=== PATIENT | female | born 1960 | race Hispanic/Latino ===

== ENCOUNTER 2024-10-29 19:28 | Emergency (ER) | payer MEDICARE, OTHER ==
[~2024-10-29] VITALS: Ht 152.4 cm; Wt 76.7 kg
[~2024-10-29 19:28] MED LIST: CLON2TAB11 PO; CYAN-52 PO; CYCL-309 PO; ESOM40CA66 PO; FOLI1TAB15 PO; LEVO50 PO
[2024-10-29 20:12] LABS: BASOPHILS # (AUTO) 0.03 K/uL (0.00-0.20); BASOPHILS % (AUTO) 0.6 % (0.0-5.0); EOSINOPHILS # (AUTO) 0.02 K/uL (0.00-0.70); EOSINOPHILS % (AUTO) 0.4 % (0.0-8.0); HEMATOCRIT 35.3 % (36-48); IMMATURE GRANULOCYTE ABSOLUTE 0.01 K/uL (0-1); LYMPHOCYTES # (AUTO) 0.6 K/uL (1.0-4.8); MEAN CORPUSCULAR HEMOGLOBIN 29.5 pg (27.0-33.0); MEAN CORPUSCULAR HGB CONC 32.6 g/dL (32.0-36.0); MEAN CORPUSCULAR VOLUME 90.5 fL (79-99); MONOCYTES # (AUTO) 0.3 K/uL (0.1-1.0); MONOCYTES % (AUTO) 6.8 % (3.0-13.0); PLATELET COUNT (AUTO) 152 K/uL (130-400); RED CELL DISTRIBUTION WIDTH 12.9 % (11.0-15.5)
--- NOTE | 2024-10-29 20:14 | ERN ---
ED Note History of Present Illness Stated Complaint: NUMBNESS TO FACE Chief Complaint: Numbness Time Seen by MD: 19:42 Dictation: Patient is a 63-year-old female with a past medical history of hypothyroidism, hypertension, anxiety. Surgical history of gastric bypass. Patient presented to the ER complaining of twitching of her right face and right hand numbness, states that symptoms started earlier this morning, has been having those symptoms in the past as well. She also reports that today in the late afternoon when hour prior arrival to the ER she was having trouble while she was driving, she noticed since she was feeling like she does not know where she is while she was driving. Some difficult to recognize the street lines. On my evaluation at bedside the patient is a since to be anxious, under physical NIH was 0. Allergies: Coded Allergies: No Known Drug Allergies (Verified Allergy, 05/04/13) Home Meds Active Scripts Hydroxyzine HCl (Atarax) 25 Mg Tab, 1 CAP PO BID for anxiety for 7 Days, #15 CAP 0 Refills Prov:SONIA SHARPE MD 10/29/24 Reported Medications Cyanocobalamin (Vitamin B-12) (Vitamin B-12) 1,000 Mcg Tablet, 1000 MCG PO DAILY, TAB 06/08/16 Cyclobenzaprine HCl (Cyclobenzaprine HCl) 10 Mg Tablet, 10 MG PO TID PRN for MUSCLE SPASMS, TAB 06/08/16 Esomeprazole Magnesium (Esomeprazole Magnesium) 40 Mg Capsule.dr, 40 MG PO DAILY, CAP 06/08/16 Folic Acid (Folic Acid) 1 Mg Tablet, 1 MG PO DAILY, TAB 06/08/16 Clonazepam (Clonazepam) 2 Mg Tablet, 2 MG PO BID, TAB 06/08/16 Levothyroxine Sodium (Levothroid/Synthroid) 50 Mcg Tab, 50 MCG PO DAILY, TAB 06/08/16 Past Medical History Past Medical History: Hypertension, Hypothyroid, Other Additional Past Medical Hx: GASTRITIS Surgical History: Hysterectomy, Cholecystectomy, Other Surgical History Other: GASTRIC BYPASS Review of System Dictation NEGATIVE EXCEPT PER HPI Constitutional: Negative for fever,chills, and weight loss Eyes: Negative for injury, pain,redness, and discharge ENT: Negative for injury,pain or swelling Cardiovascular: denies chest pain, palpitations, and edema Respiratory: Negative for shortness of breath, cough, and wheezing, Abdomen/GI: Negative for abdominal pain, nausea, vomiting, diarrhea, and constipation Back: Negative for injury and pain : Negative for injury, bleeding and discharge MS/Extremity: Negative for injury and deformity Skin: Negative for rash, and discoloration Neuro: Reports right hand numbness, right facial twitching Psych: Negative for suicide ideation, homicidal ideation, and hallucinations. Patient looks anxious Initial Vital Sign VS Vital Signs Date Time Temp Pulse Resp B/P (MAP) Pulse Ox O2 Delivery O2 Flow Rate FiO2 10/29/24 19:47 98.1 67 20 167/77 97 Room Air 10/29/24 20:08 0 21 Physical Exam Dictation General: awake, alert, anxious Head/Face: Normocephalic, atraumatic Eyes: PERRL, EOMI, vision at baseline ENT: oral cavity clear, TMs clear, no signs of infection Neck: Trachea midline, supple, no nuchal rigidity Cardiovascular: RRR, normal S1/S2, No MRGs, no JVD Respiratory: CTAB, no respiratory distress, No rales or wheezes Abdomen: Soft , no tender Skin: Warm, dry, normal turgor, no rash MS/Extremity: Pulses equal, no cyanosis, neurovascular intact, FROM Neuro: COAx4, GCS 15, strength 5/5, CN 2-12 intact, normal cerebellar exam, normal gait, Psych: Normal behavior, mood, and affect normal Results (Laboratory/Radiology) Laboratory/Radiology Laboratory Tests Test 10/29/24 20:05 10/29/24 20:30 White Blood Count 5.0 K/uL (4.8-10.8) Red Blood Count 3.90 MIL/uL (4.00-5.50) L Hemoglobin 11.5 g/dL (12.0-16.0) L Hematocrit 35.3 % (36-48) L Mean Corpuscular Volume 90.5 fL (79-99) Mean Corpuscular Hemoglobin 29.5 pg (27.0-33.0) Mean Corpuscular Hemoglobin Concent 32.6 g/dL (32.0-36.0) Red Cell Distribution Width 12.9 % (11.0-15.5) Platelet Count 152 K/uL (130-400) Mean Platelet Volume 11.7 fL (7.5-10.5) H Immature Granulocyte % (Auto) 0.2 % (0-1) Neutrophils (%) (Auto) 81.0 % (40.0-77.0) H Lymphocytes (%) (Auto) 11.0 % (21.0-51.0) L Monocytes (%) (Auto) 6.8 % (3.0-13.0) Eosinophils (%) (Auto) 0.4 % (0.0-8.0) Basophils (%) (Auto) 0.6 % (0.0-5.0) Neutrophils # (Auto) 4.0 K/uL (1.8-7.7) Lymphocytes # (Auto) 0.6 K/uL (1.0-4.8) L Monocytes # (Auto) 0.3 K/uL (0.1-1.0) Eosinophils # (Auto) 0.02 K/uL (0.00-0.70) Basophils # (Auto) 0.03 K/uL (0.00-0.20) Absolute Immature Granulocyte (auto 0.01 K/uL (0-1) Nucleated Red Blood Cells 0.0 % (0.0-0.19) Sodium Level 137 mmol/L (136-145) Potassium Level 4.2 mmol/L (3.5-5.1) Chloride Level 101 mmol/L (101-111) Carbon Dioxide Level 30 mmol/L (21-32) Blood Urea Nitrogen 15 mg/dL (7-18) Creatinine 0.7 mg/dL (0.5-1.0) Glomerular Filtration Rate Calc 98 mL/min (>90) Random Glucose 113 mg/dL (70-105) H Total Calcium 9.1 mg/dL (8.5-10.1) Troponin I High Sensitivity 4 ng/L (4-50) Urine Color COLORLESS (YELLOW) Urine Appearance CLEAR (CLEAR) Urine pH 6.0 (5.0-8.0) Urine Specific [place] 1.008 (1.001-1.031) Urine Protein NEGATIVE mg/dL (NEGATIVE) Urine Glucose (UA) NEGATIVE mg/dL (NEGATIVE) Urine Ketones NEGATIVE mg/dL (NEGATIVE) Urine Occult Blood NEGATIVE (NEGATIVE) Urine Nitrate NEGATIVE (NEGATIVE) Urine Bilirubin NEGATIVE mg/dL (NEGATIVE) Urine Urobilinogen 0.2 mg/dL (0.2-1.0) Urine Leukocyte Esterase 25 Geovani/uL (NEGATIVE) H Urine RBC 0-1 /HPF (0-1) Urine WBC 0-1 /HPF (0-1) Urine Bacteria None /HPF (None Seen) ED Course ED Course Orders Procedure Category Date Status Time Aspirin 325mg Ec Tab PHA 10/29/24 Complete (Aspirin 325mg Ec T 20:00 Ct Head/Brain W/O CT 10/29/24 Resulted Contrast 20:00 Basic Metabolic Panel LAB 10/29/24 Complete 20:02 Cbc With Differential LAB 10/29/24 Complete 20:02 Lorazepam 1 Mg PHA 10/29/24 Complete (Ativan) 20:30 Urinalysis Profile LAB 10/29/24 Complete 20:29 12 Lead Ekg Tracing- EKG 10/29/24 Logged Technical 20:55 Troponin I High LAB 10/29/24 Complete Sensitivity 20:55 Current Medications Medications (Trade) Dose Ordered Sig/Samara Route PRN Reason Start Time Stop Time Status Last Admin Dose Admin Aspirin (Aspirin 325mg Ec Tab) 325 mg ONCE ONCE PO 10/29/24 20:00 10/29/24 20:05 DC 10/29/24 20:48 Lorazepam (AtiVAN) 1 mg ONCE ONCE PO 10/29/24 20:30 10/29/24 20:31 DC 10/29/24 20:47 Vital Signs Date Time Temp Pulse Resp B/P (MAP) Pulse Ox O2 Delivery O2 Flow Rate FiO2 10/29/24 21:07 73 14 152/78 99 Room Air* 0 21 10/29/24 20:08 98.2 68 20 164/74 100 Room Air* 0 21 10/29/24 19:47 98.1 67 20 167/77 97 Room Air Medical Decision Making MDM 63-year-old female who presented with a complaining of anxiety, right facial twitching, right hand numbness. NIH was 0 Anxiety Stroke-like symptoms Possible hypertensive episode causing seizure-like symptoms We will do a CT scan, CBC and BMP Nursing staff states the patient was complaining of chest pain, we will add a EKG and troponin level to be done. CT imaging negative for acute findings/abnormalities CBC and BNP within normal limits EKG and troponin within normal limits. Likely patient's symptoms related to anxiety, recommendation is to avoid driving went to see PCP in next 24 DX & DISP Disposition: Discharge Departure Impression: Primary Impression: Anxiety in acute stress reaction Additional Impressions: Stroke-like episode, Hypertension Condition: Stable Scripts Hydroxyzine HCl (Atarax) 25 Mg Tab 1 CAP PO BID for anxiety for 7 Days, #15 CAP 0 Refills Prov: SONIA SHARPE MD 10/29/24 Referrals: CAT GIANG (PCP) Time of Disposition: 21:28 SONIA SHARPE MD October 29, 2024 20:14
[2024-10-29 20:19] LABS: CREATININE 0.7 mg/dL (0.5-1.0); POTASSIUM 4.2 mmol/L (3.5-5.1)
[2024-10-29 20:37] LABS: APPEARANCE,URINE CLEAR (CLEAR); BILIRUBIN,URINE NEGATIVE (NEGATIVE); COLOR,URINE COLORLESS (YELLOW); GLUCOSE, URINE (UA) NEGATIVE (NEGATIVE); KETONES,URINE NEGATIVE (NEGATIVE); LEUKOCYTE ESTERASE ,URINE 25 Leu/uL (NEGATIVE); NITRATE,URINE NEGATIVE (NEGATIVE); OCCULT BLOOD,URINE NEGATIVE (NEGATIVE); PROTEIN,URINE NEGATIVE (NEGATIVE); UROBILINOGEN,URINE 0.2 mg/dL (0.2-1.0)
[2024-10-29 20:38] LABS: ADD UA MICROSCOPIC YES
[2024-10-29 20:40] LABS: RBC,URINE 0-1 /HPF (0-1); WBC,URINE 0-1 /HPF (0-1)
--- NOTE | 2024-10-29 20:46 | HMCIMG ---
CT HEAD/BRAIN W/O CONTRAST HISTORY: Stroke COMPARISON: None TECHNIQUE: Multiple sequential axial images of the head were obtained from the base of the skull through vertex. Patient was not given contrast through intravenous route. FINDINGS: The ventricles and extraventricular CSF spaces are nondilated for patient's age. There is no midline shift, mass effect or herniation. No acute intracranial bleed is seen. Visualized portion of the paranasal sinuses are grossly within normal limits. IMPRESSION: 1. No acute intracranial bleed is seen. CT was performed with one or more following dose reduction techniques: automated exposure control, adjustment of the mA and kv according to patient's size, or use of a iterative reconstruction technique.
[2024-10-29] MEDS: LORazepam 1 MG TABLET PO ONE (20:47)
[2024-10-29] MEDS: ASPIRIN 325MG EC TAB PO ONE (20:48)
[2024-10-29] MEDS ORDERED: HYD25 PO (21:28)
[2024-10-29 21:36] VITALS: BP 150/72; PULSE 76; RESP 14; TEMP 98.4; O2SAT 98
--- NOTE | 2024-10-29 21:52 | NUR ---
PRESCRIPTION CALLED IN TO [facility]
--- NOTE | 2024-10-30 06:22 | EKG ---
[facility] Test Date: 2024-10-29 Test Time: 21:01:52 Pat Name: JOE WARD Department: [facility] Room: Gender: F Sleeping Bag Filler: 1376 : 1960 Requested By: SONIA ACOSTA Order Number: [id number] Reading MD: Samir Castellano Measurements Intervals [place] Rate: 73 P: 35 HI: 164 QRS: -23 QRSD: 91 T: 2 QT: 405 QTc: 447 Interpretive Statements Sinus rhythm LEFT VENTRICULAR HYPERTROPHY voltage No previous ECG available for comparison Electronically Signed On 11-03-2024 22:08:35 CDT by Samir Castellano Please click the below link to view image of tracing.
== END 2024-10-29 21:40 | disposition home or self-care (01) ==
LOC: EDH 19:28
DX: F43.0 Acute stress reaction (principal); I63.9 Cerebral infarction, unspecified; I10 Essential (primary) hypertension; E03.9 Hypothyroidism, unspecified; Z79.890 Hormone replacement therapy; Z79.899 Other long term (current) drug therapy; Z90.49 Acquired absence of other specified parts of digestive tract; Z90.710 Acquired absence of both cervix and uterus; Z98.84 Bariatric surgery status
CPT/HCPCS: 36415; 70450; 80048; 81001; 84484; 85025; 93005; 99284